=== PATIENT | female | born 1935 | race Caucasian/White ===

== ENCOUNTER 2018-01-09 09:32 | Observation (INO) | payer OTHER, MEDICARE ==
[~2018-01-09] VITALS: Ht 165.1 cm; Wt 89.5 kg
[~2018-01-09 09:32] MED LIST: AMARYL1 MG PO; ASPIRIN81 M2 PO; LEVAQUIN750 MG PO; LISINOPRIL20 MG PO
[2018-01-09 10:10] LABS: HEMATOCRIT 33.7 % (36.0-46.0); HEMOGLOBIN 10.5 G/DL (11.9-15.5); MCH 27.5 PG (29.0-34.0); MCHC 31.2 G/DL (30.0-36.0); MCV 88.2 FL (83-99); PLATELET COUNT 146 K/uL (156-360); RBC DIS.WIDTH-CV 15.8 % (11.8-14.6); RBC DIS.WIDTH-SD 51.3 % (39-53); RED BLOOD COUNT 3.82 M/uL (3.80-5.20); WHITE BLOOD COUNT 5.4 K/uL (4.1-10.2)
[2018-01-09 10:23] LABS: CHLORIDE 104 mEq/L (99-109); POTASSIUM 3.9 mEq/L (3.7-5.4); SODIUM 140 mEq/L (136-147)
[2018-01-09 10:24] LABS: GLUCOSE 149 mg/dL (70-99)
[2018-01-09 10:28] LABS: CREATININE 0.8 mg/dL (0.6-1.3); GFR ESTIMATE (CALCULATED) > 59 mL/min/
[2018-01-09 10:29] LABS: UREA NITROGEN (BUN) 19 mg/dL (9-23)
[2018-01-09 10:31] LABS: TROP-I INTERPRETATION NEGATIVE; TROPONIN-I 0.02 ng/mL (0.0-0.30)
[2018-01-09] MEDS ORDERED: MICROZIDE12.5 M1 PO (11:03)
[2018-01-09] MEDS ORDERED: NAMZARIC 28 MG1 EACH PO (11:04)
[2018-01-09] MEDS ORDERED: ASCORBIC ACID100 MG PO (11:04)
[2018-01-09] MEDS ORDERED: WELLBUTRIN XL150 MG PO (11:04)
[2018-01-09] MEDS ORDERED: PRISTIQ50 MG PO (11:04)
[2018-01-09] MEDS ORDERED: VITAMIN D2000 UNI1 PO (11:05)
[2018-01-09 13:43] VITALS: BP 166/80
[2018-01-09 16:41] LABS: TROP-I INTERPRETATION NEGATIVE; TROPONIN-I < 0.01 ng/mL (0.0-0.30)
[2018-01-09 19:20] VITALS: BP 136/65
[2018-01-09 22:22] LABS: TROP-I INTERPRETATION NEGATIVE; TROPONIN-I < 0.01 ng/mL (0.0-0.30)
[2018-01-09 23:07] VITALS: BP 168/87
[2018-01-10 03:17] VITALS: BP 141/62
[2018-01-10 05:33] LABS: HEMATOCRIT 33.5 % (36.0-46.0); HEMOGLOBIN 10.2 G/DL (11.9-15.5); MCH 27.1 PG (29.0-34.0); MCHC 30.4 G/DL (30.0-36.0); MCV 88.9 FL (83-99); PLATELET COUNT 152 K/uL (156-360); RBC DIS.WIDTH-CV 15.9 % (11.8-14.6); RBC DIS.WIDTH-SD 51.8 % (39-53); RED BLOOD COUNT 3.77 M/uL (3.80-5.20); WHITE BLOOD COUNT 4.8 K/uL (4.1-10.2)
[2018-01-10 08:17] VITALS: BP 187/80
[2018-01-10] MEDS ORDERED: ASPIRIN81 M2 PO (08:56)
[2018-01-10 11:27] VITALS: BP 167/103
== END 2018-01-10 11:55 | disposition home or self-care (01) ==
LOC: EME 09:32 → 4SOUTH 10:52 → EDOF 10:52 → ENRESERV 10:57 → 4SOUTH 13:37
PROVIDERS: Emergency Medicine; Physician Assistant Medical
DX: R07.89 Other chest pain (principal); R09.02 Hypoxemia; E11.9 Type 2 diabetes mellitus without complications; I10 Essential (primary) hypertension; I25.10 Atherosclerotic heart disease of native coronary artery without angina pectoris; I25.2 Old myocardial infarction; I45.10 Unspecified right bundle-branch block; Z90.710 Acquired absence of both cervix and uterus; Z82.49 Family history of ischemic heart disease and other diseases of the circulatory system; Z79.82 Long term (current) use of aspirin; Z79.84 Long term (current) use of oral hypoglycemic drugs
CPT/HCPCS: 71045; 80048; 83880; 84484; 85027; 93005; 99281; 99285; G0378